=== PATIENT | male | born 1960 | race Caucasian/White ===

== ENCOUNTER 2017-02-10 00:48 | Inpatient (IN) | payer BC ==
--- NOTE | 2017-02-10 00:58 | HP ---
CIWA Score - CIWA Score Nausea/Vomitin Muscle Tremors: None Anxiety: 4-Mod. Anxious/Guarded Agitation: 3 Paroxysmal Sweats: 3 Orientation: 1-Uncertain about Date Tacttile Disturbances: 2-Mild Itch/Numbness/Burn Auditory Disturbances: 1-Very Mild Visual Disturbances: 2-Mild Sensitivity Headache: 1-Very Mild CIWA-Ar Total Score: 19 Admission ROS BHS - HPI Chief Complaint: Withdrawal symptoms Allergies/Adverse Reactions: Allergies Allergy/AdvReac Type Severity Reaction Status Date / Time No Known Allergies Allergy Verified 02/10/17 01:01 History of Present Illness: 56 y.o. man with a history dependence is here for his first admission ever into detox. Pt. was arrested the previous night for a DUI. He has a history of depression but is not currently under treatment. Exam Limitations: Intoxication - Ebola screening Have you traveled outside of the country in the last 21 days: No - Review of Systems Constitutional: Changes in sleep EENT: reports: No Symptoms Reported Respiratory: reports: No Symptoms reported Cardiac: reports: No Symptoms Reported GI: reports: No Symptoms Reported : reports: No Symptoms Reported Musculoskeletal: reports: No Symptoms Reported Integumentary: reports: No Symptoms Reported Neuro: reports: No Symptoms reported Endocrine: reports: No Symptoms Reported Hematology: reports: No Symptoms Reported Psychiatric: reports: Anxious, Depressed, other (ADHD) Other Systems: Reviewed and Negative Patient History - Patient Medical History Hx Anemia: No Hx Asthma: No Hx Chronic Obstructive Pulmonary Disease (COPD): No Hx Cancer: No Hx Cardiac Disorders: No Hx Congestive Heart Failure: No Hx Hypertension: No Hx Hypercholesterolemia: No Hx Pacemaker: No HX Cerebrovascular Accident: No Hx Seizures: No Hx Dementia: No Hx Diabetes: No Hx Gastrointestinal Disorders: No Hx Liver Disease: No Hx Genitourinary Disorders: No Hx Sexually Transmitted Disorders: No Hx Renal Disease (ESRD): No Hx Thyroid Disease: No Hx Human Immunodeficiency Virus (HIV): No Hx Hepatitis C: No Hx Depression: Yes Hx Suicide Attempt: No Hx Bipolar Disorder: No Hx Schizophrenia: No - Patient Surgical History Past Surgical History: No - PPD History Previous Implant?: Yes Documented Results: Negative w/o proof PPD to be Administered?: Yes - Reproductive History Patient is a Female of Child Bearing Age (11 -55 yrs old): No - Smoking Cessation Smoking history: Never smoked - Substance & Tx. History Hx Alcohol Use: Yes Hx Substance Use: Yes (Prescibed medical marijuana when living in [place]. ) Substance Use Type: Alcohol Hx Substance Use Treatment: No (NEVER BEEN TO DETOX OR REHAB ) - Substances Abused Alcohol Route: Oral Frequency: Daily Amount used: 1-2 pints of liquor Age of first use: 13 Date of Last Use: 02/09/17 Family Disease History - Family Disease History Family History: Denies Admission Physical Exam [facility] - Vital Signs Vital Signs: Last Vital Signs Temp Pulse Resp BP Pulse Ox 98.0 F 101 H 16 135/88 02/10/17 01:20 02/10/17 01:20 02/10/17 01:20 02/10/17 01:20 - Physical General Appearance: Yes: Irritable, Sweating, Anxious HEENTM: Yes: Hearing grossly Normal, Normocephalic, Normal Voice Respiratory: Yes: Chest Non-Tender, Lungs Clear, Normal Breath Sounds, No Respiratory Distress, No Accessory Muscle Use Neck: Yes: No masses,lesions,Nodules Breast: Yes: Breast Exam Deferred Cardiology: Yes: Regular Rhythm, Tachycardia Abdominal: Yes: Flat, Soft Genitourinary: Yes: Other (NO COMPLAINTS REPORTED) Back: Yes: Normal Inspection Musculoskeletal: Yes: Gait Steady, Pelvis Stable Extremities: Yes: Normal Inspection, Normal Range of Motion, Non-Tender Neurological: Yes: Alert, Normal Mood/Affect, Normal Response Integumentary: Yes: Normal Color, Dry, Warm Lymphatic: Yes: Within Normal Limits - Diagnostic (1) Alcohol dependence with uncomplicated withdrawal Current Visit: Yes Status: Chronic Cleared for Admission [facility] - Detox or Rehab [facility] Level of Care: Medically Managed Detox Regimen/Protocol: Librium [facility] Breath Alcohol Content Breath Alcohol Content: 0.270 Vital Signs - Vital Signs Vital Signs Refused: No Temperature: 98.0 F Temperature Source: Oral Pulse Rate: 101 Respiratory Rate: 16 Blood Pressure: 135/88 BP Location: Left Arm Blood Pressure Position: Sitting - Height Height: 5 ft 10 in - Weight Weight: 248 lb Weight Measurement Method: Standing Scale Body Mass Index (BMI): 35.6 Urine Drug Screen - Control Is Test Valid: Yes - Results Drug Screen Negative: Yes
[2017-02-10 01:02] VITALS: BMI 35.6
[2017-02-10] MEDS ORDERED: MAGNESIUM HYDROX 2400MG/30ML ORAL SUSPENSION 30 ML CUP PO PRN (01:05)
[2017-02-10] MEDS ORDERED: LOPERAMIDE HCL 2 MG CAPSULE PO PRN (01:05)
[2017-02-10] MEDS ORDERED: MENTHOL/PHENOL 1 EACH UD MM PRN (01:05)
[2017-02-10] MEDS ORDERED: guaiFENesin/D-METHORPHAN HB 10 ML UNIT-DOSE CUPS PO PRN (01:05)
[2017-02-10] MEDS ORDERED: P-EPHED 60MG/TRIPROLIDI 2.5MG TABLET PO PRN (01:05)
[2017-02-10] MEDS ORDERED: chlordiazePOXIDE HCL 25 MG CAPSULE PO ONE (01:05)
[2017-02-10] MEDS ORDERED: IBUPROFEN 400 MG TABLET (FP) PO PRN (01:05)
[2017-02-10] MEDS ORDERED: MAGNESIUM CITRATE 300 ML BOTTLE PO PRN (01:05)
[2017-02-10] MEDS ORDERED: MAG HYDROX/AL HYDROX/SIMETH 30 ML UNIT-DOSE CUP PO PRN (01:05)
[2017-02-10] MEDS ORDERED: chlordiazePOXIDE HCL 25 MG CAPSULE PO PRN (01:05)
[2017-02-10] MEDS ORDERED: ACETAMINOPHEN 325 MG TABLET (FP) PO PRN (01:05)
[2017-02-10] MEDS ORDERED: hydrOXYzine PAMOATE 50 MG CAPSULE (FP) PO PRN (01:05)
[2017-02-10] MEDS: chlordiazePOXIDE HCL 25 MG CAPSULE PO SCH ×4 (05:34→22:16)
[2017-02-10] MEDS: PRENATAL VITAMINS W/ FOLIC ACID TABLET (FP) PO SCH (10:06)
[2017-02-10 10:15] LABS: MCH 32.5 pg (25.7-33.7); MCHC 34.8 g/dl (32.0-35.9); MEAN CELL VOLUME 93.6 fl (80-96); MEAN PLT VOLUME 7.2 fl (7.5-11.1); PLATELET COUNT 209 K/MM3 (134-434); RDW 14.1 % (11.9-15.9)
[2017-02-10 10:18] LABS: URINE APPEARANCE CLEAR; URINE BILIRUBIN NEGATIVE (NEGATIVE); URINE BLOOD NEGATIVE (NEGATIVE); URINE COLOR LTYELLOW; URINE GLUCOSE (UA) NEGATIVE (NEGATIVE); URINE KETONE 1+ (NEGATIVE); URINE LEUK ESTERASE NEGATIVE (NEGATIVE); URINE NITRITE NEGATIVE (NEGATIVE); URINE PROTEIN NEGATIVE (NEGATIVE); URINE UROBILINOGEN NEGATIVE E.U./dl (0.2-1.0)
[2017-02-10 10:26] LABS: ALBUMIN 3.3 g/dl (3.4-5.0); ANION GAP 16 (8-16); CO2 24 mmol/L (21-32); COCKROFT - GAULT 183.02; CREATININE 0.7 mg/dL (0.7-1.3); GLUCOSE,RANDOM 85 mg/dL (74-106); SGOT/AST 33 U/L (15-37); SGPT/ALT 40 U/L (12-78)
[2017-02-10 10:29] LABS: ALK PHOS 64 U/L (45-117); BILIRUBIN,TOTAL 0.7 mg/dL (0.2-1.0); TOT PROT 6.5 g/dl (6.4-8.2)
--- NOTE | 2017-02-10 13:23 | PN ---
S CIWA - CIWA Score Nausea/Vomitin Muscle Tremors: 4-Moderate,w/Arms Extend Anxiety: 4-Mod. Anxious/Guarded Agitation: 4-Moderately Restless Paroxysmal Sweats: 2 Orientation: 0-Oriented Tacttile Disturbances: 1-Very Mild Itch/Numbness Auditory Disturbances: 0-None Visual Disturbances: 0-None Headache: 2-Mild CIWA-Ar Total Score: 20 BHS Progress Note (SOAP) Subjective: Anxious, sweating, chills, tremor, nausea Objective: 02/10/17 13:21 Last Vital Signs Temp Pulse Resp BP Pulse Ox 96.8 F L 101 H 18 178/99 02/10/17 13:06 02/10/17 13:06 02/10/17 13:06 02/10/17 13:06 B/P: 178/99 Laboratory Tests 02/10/17 02/10/17 02/10/17 08:00 08:00 08:00 WBC 6.0 RBC 4.94 Hgb 16.1 Hct 46.2 MCV 93.6 MCHC 34.8 RDW 14.1 Plt Count 209 MPV 7.2 L Sodium 139 Potassium 3.7 Chloride 99 Carbon Dioxide 24 Anion Gap 16 BUN 9 Creatinine 0.7 Creat Clearance w eGFR > 60 Random Glucose 85 Calcium 8.0 L Total Bilirubin 0.7 AST 33 ALT 40 Alkaline Phosphatase 64 Total Protein 6.5 Albumin 3.3 L Urine Color Urine Appearance Urine pH Ur Specific [place] Urine Protein Urine Glucose (UA) Urine Ketones Urine Blood Urine Nitrite Urine Bilirubin Urine Urobilinogen Ur Leukocyte Esterase RPR Titer Nonreactive 02/10/17 09:00 WBC RBC Hgb Hct MCV MCHC RDW Plt Count MPV Sodium Potassium Chloride Carbon Dioxide Anion Gap BUN Creatinine Creat Clearance w eGFR Random Glucose Calcium Total Bilirubin AST ALT Alkaline Phosphatase Total Protein Albumin Urine Color Ltyellow Urine Appearance Clear Urine pH 5.0 Ur Specific [place] 1.020 Urine Protein Negative Urine Glucose (UA) Negative Urine Ketones 1+ H Urine Blood Negative Urine Nitrite Negative Urine Bilirubin Negative Urine Urobilinogen Negative Ur Leukocyte Esterase Negative RPR Titer Labs noted Assessment: 02/10/17 13:22 Withdrawal symptoms Noted with HTN Plan: Continue detox Encouraged to drink plenty of water (at least 8 cups/day) HTN: clonidine 0.1mg PO q8hr prn, give if B/P > 140/90; start norvasc 10mg PO daily tomorrow
--- NOTE | 2017-02-10 15:44 | EKG ---
Test Reason : Blood Pressure : / mmHG Vent. Rate : 082 BPM Atrial Rate : 082 BPM P-R Int : 162 ms QRS Dur : 092 ms QT Int : 364 ms P-R-T Axes : 022 025 028 degrees QTc Int : 425 ms NORMAL SINUS RHYTHM NORMAL ECG NO PREVIOUS ECGS AVAILABLE Confirmed by MAGDA KEYS, RAMILA ([id number]) on 02/10/2017 3:44:19 PM Referred By: Confirmed By:RAMILA MAN MD
[2017-02-10] MEDS: diphenhydrAMINE HCL 50 MG CAPSULE PO PRN (22:16)
[2017-02-10] MEDS: THIAMINE HCL 100 MG TABLET (FP) PO SCH (22:16)
[2017-02-11] MEDS: chlordiazePOXIDE HCL 25 MG CAPSULE PO SCH ×4 (05:29→22:12)
[2017-02-11] MEDS: PRENATAL VITAMINS W/ FOLIC ACID TABLET (FP) PO SCH (10:08)
[2017-02-11] MEDS: amLODIPine BESYLATE 10 MG TABLET (FP) PO SCH (10:08)
--- NOTE | 2017-02-11 12:34 | PN ---
[facility] CIWA - CIWA Score Nausea/Vomitin-No Nausea/No Vomiting Muscle Tremors: 4-Moderate,w/Arms Extend Anxiety: 4-Mod. Anxious/Guarded Agitation: 3 Paroxysmal Sweats: 3 Orientation: 0-Oriented Tacttile Disturbances: 0-None Auditory Disturbances: 0-None Visual Disturbances: 0-None Headache: 0-None Present CIWA-Ar Total Score: 14 BHS Progress Note (SOAP) Subjective: Sweating,interrupted sleep,restless,tremors,anxiety Objective: 02/11/17 12:33 Vital Signs - 8 hr 02/11/17 02/11/17 06:14 09:20 Temperature 97.0 F L 97.6 F Pulse Rate 104 H 88 Respiratory 18 18 Rate Blood Pressure 150/108 162/106 Laboratory Tests 02/10/17 02/10/17 02/10/17 08:00 08:00 08:00 WBC 6.0 RBC 4.94 Hgb 16.1 Hct 46.2 MCV 93.6 MCHC 34.8 RDW 14.1 Plt Count 209 MPV 7.2 L Sodium 139 Potassium 3.7 Chloride 99 Carbon Dioxide 24 Anion Gap 16 BUN 9 Creatinine 0.7 Creat Clearance w eGFR > 60 Random Glucose 85 Calcium 8.0 L Total Bilirubin 0.7 AST 33 ALT 40 Alkaline Phosphatase 64 Total Protein 6.5 Albumin 3.3 L Urine Color Urine Appearance Urine pH Ur Specific [place] Urine Protein Urine Glucose (UA) Urine Ketones Urine Blood Urine Nitrite Urine Bilirubin Urine Urobilinogen Ur Leukocyte Esterase RPR Titer Nonreactive 02/10/17 09:00 WBC RBC Hgb Hct MCV MCHC RDW Plt Count MPV Sodium Potassium Chloride Carbon Dioxide Anion Gap BUN Creatinine Creat Clearance w eGFR Random Glucose Calcium Total Bilirubin AST ALT Alkaline Phosphatase Total Protein Albumin Urine Color Ltyellow Urine Appearance Clear Urine pH 5.0 Ur Specific [place] 1.020 Urine Protein Negative Urine Glucose (UA) Negative Urine Ketones 1+ H Urine Blood Negative Urine Nitrite Negative Urine Bilirubin Negative Urine Urobilinogen Negative Ur Leukocyte Esterase Negative RPR Titer labs noted Assessment: 02/11/17 12:33 Withdrawal sx. Plan: Continue detox
--- NOTE | 2017-02-11 13:06 | CONSULT ---
[facility] Psychiatric Consult - Data Date of interview: 02/11/17 Admission source: [facility] Identifying data: First admission to [facility] for this 56 y/o male seeking detox treatment for alcohol dependence.Patient is (has no children of his own),domiciled,currently unemployed and supported by spouse. Substance Abuse History: - Smoking Cessation. Smoking history: Never smoked. - Substance & Tx. History. Hx Alcohol Use: Yes. Hx Substance Use: Yes ( Prescibed medical marijuana when living in [place]. ). Substance Use Type: Alcohol. Hx Substance Use Treatment: No (NEVER BEEN TO DETOX OR REHAB ). - Substances Abused. Alcohol. Route: Oral. Frequency: Daily. Amount used: 1-2 pints of liquor. Age of first use: 13. Date of Last Use: 02/09/17. Confirmed by patient. Medical History: Patient endorses good general health. Psychiatric History: Patient denies history of psychiatric hospitalizations.He reports recent outpatient psychiatric care to address depression.Mr Dunn indicates that,until two months ago,he was under the care of a private psychiatrist in [place], [place].Was managed with lamotrigine.Stopped taking this medication over seven weeks ago because,according to patient,the drug was not effective.Patient denies history of suicide attempts. Physical/Sexual Abuse/Trauma History: Patient denies. Additional Comment: Drug Screen is negative. Mental Status Exam - Mental Status Exam Alert and Oriented to: Time, Place, Person Cognitive Function: Good Patient Appearance: Well Groomed Mood: Withdrawn, Hopeful Affect: Appropriate, Normal Range Patient Behavior: Cooperative Speech Pattern: Clear Voice Loudness: Normal Thought Process: Intact, Goal Oriented Thought Disorder: Not Present Hallucinations: Denies Suicidal Ideation: Denies Homicidal Ideation: Denies Insight/Judgement: Poor Sleep: Well Appetite: Good Muscle strength/Tone: Normal Gait/Station: Normal Psychiatric Findings - Problem List ([place] 1, 2,3) (1) Alcohol dependence with uncomplicated withdrawal Current Visit: Yes Status: Chronic (2) Alcohol-induced mood disorder Current Visit: Yes Status: Acute - Initial Treatment Plan Initial Treatment Plan: Psychoeducation.Detoxification.Observation.
[2017-02-11] MEDS: diphenhydrAMINE HCL 50 MG CAPSULE PO PRN (22:12)
[2017-02-11] MEDS: THIAMINE HCL 100 MG TABLET (FP) PO SCH (22:12)
[2017-02-11] MEDS: cloNIDine HCL 0.1 MG TABLET PO PRN (22:12)
[2017-02-12] MEDS: chlordiazePOXIDE 5 MG CAPSULE PO SCH ×4 (05:23→22:13)
[2017-02-12] MEDS: PRENATAL VITAMINS W/ FOLIC ACID TABLET (FP) PO SCH (10:25)
[2017-02-12] MEDS: amLODIPine BESYLATE 10 MG TABLET (FP) PO SCH (10:25)
--- NOTE | 2017-02-12 12:24 | PN ---
BHS Progress Note (SOAP) Subjective: Sweating,interrupted sleep,restless. Objective: 02/12/17 12:23 Vital Signs - 8 hr 02/12/17 02/12/17 06:11 09:14 Temperature 97.0 F L 96.7 F L Pulse Rate 85 86 Respiratory 18 18 Rate Blood Pressure 145/98 133/85 Laboratory Last Values WBC 6.0 K/mm3 (4.0-10.0) 02/10/17 08:00 RBC 4.94 M/mm3 (4.00-5.60) 02/10/17 08:00 Hgb 16.1 GM/dL (11.7-16.9) 02/10/17 08:00 Hct 46.2 % (35.4-49) 02/10/17 08:00 MCV 93.6 fl (80-96) 02/10/17 08:00 MCHC 34.8 g/dl (32.0-35.9) 02/10/17 08:00 RDW 14.1 % (11.9-15.9) 02/10/17 08:00 Plt Count 209 K/MM3 (134-434) 02/10/17 08:00 MPV 7.2 fl (7.5-11.1) L 02/10/17 08:00 Sodium 139 mmol/L (136-145) 02/10/17 08:00 Potassium 3.7 mmol/L (3.5-5.1) 02/10/17 08:00 Chloride 99 mmol/L (98-107) 02/10/17 08:00 Carbon Dioxide 24 mmol/L (21-32) 02/10/17 08:00 Anion Gap 16 (8-16) 02/10/17 08:00 BUN 9 mg/dL (7-18) 02/10/17 08:00 Creatinine 0.7 mg/dL (0.7-1.3) 02/10/17 08:00 Creat Clearance w eGFR > 60 (>60) 02/10/17 08:00 Random Glucose 85 mg/dL (74-106) 02/10/17 08:00 Calcium 8.0 mg/dL (8.5-10.1) L 02/10/17 08:00 Total Bilirubin 0.7 mg/dL (0.2-1.0) 02/10/17 08:00 AST 33 U/L (15-37) 02/10/17 08:00 ALT 40 U/L (12-78) 02/10/17 08:00 Alkaline Phosphatase 64 U/L (45-117) 02/10/17 08:00 Total Protein 6.5 g/dl (6.4-8.2) 02/10/17 08:00 Albumin 3.3 g/dl (3.4-5.0) L 02/10/17 08:00 Urine Color Ltyellow 02/10/17 09:00 Urine Appearance Clear 02/10/17 09:00 Urine pH 5.0 (5.0-8.0) 02/10/17 09:00 Ur Specific [place] 1.020 (1.005-1.025) 02/10/17 09:00 Urine Protein Negative (NEGATIVE) 02/10/17 09:00 Urine Glucose (UA) Negative (NEGATIVE) 02/10/17 09:00 Urine Ketones 1+ (NEGATIVE) H 02/10/17 09:00 Urine Blood Negative (NEGATIVE) 02/10/17 09:00 Urine Nitrite Negative (NEGATIVE) 02/10/17 09:00 Urine Bilirubin Negative (NEGATIVE) 02/10/17 09:00 Urine Urobilinogen Negative E.U./dl (0.2-1.0) 02/10/17 09:00 Ur Leukocyte Esterase Negative (NEGATIVE) 02/10/17 09:00 RPR Titer Nonreactive (NONREACTIVE) 02/10/17 08:00 labs noted Assessment: 02/12/17 12:23 Withdrawal sx. Plan: Continue detox
[2017-02-12] MEDS: cloNIDine HCL 0.1 MG TABLET PO PRN (16:52)
[2017-02-12] MEDS: THIAMINE HCL 100 MG TABLET (FP) PO SCH (22:12)
[2017-02-12] MEDS: diphenhydrAMINE HCL 50 MG CAPSULE PO PRN (22:13)
[2017-02-13] MEDS: chlordiazePOXIDE HCL 10 MG CAPSULE PO SCH ×2 (05:25→10:19)
[2017-02-13 09:19] VITALS: BP 139/93; PULSE 92; TEMP 98.4
[2017-02-13] MEDS: amLODIPine BESYLATE 10 MG TABLET (FP) PO SCH (10:16)
[2017-02-13] MEDS: PRENATAL VITAMINS W/ FOLIC ACID TABLET (FP) PO SCH (10:17)
--- NOTE | 2017-02-13 11:22 | DS ---
[facility] Detox Discharge Summary Admission Date: 02/10/17 Discharge Date: 02/13/17 - History Present History: Alcohol Dependence Additional Comments: ADVISED PATIENT TO FOLLOW-UP WITH [facility] AFTER DISCHARGE FROM DETOX FOR GENERAL MEDICAL ASSESSMENT. Pertinent Past History: Depression. - Physical Exam Results Vital Signs: Vital Signs Temperature 98.4 F 02/13/17 09:19 Pulse Rate 92 H 02/13/17 09:19 Respiratory Rate 18 02/13/17 09:19 Blood Pressure 139/93 02/13/17 09:19 O2 Sat by Pulse Oximetry (%) Pertinent Admission Physical Exam Findings: WITHDRAWAL SYMPTOMS. Laboratory Tests 02/10/17 02/10/17 02/10/17 08:00 08:00 08:00 WBC 6.0 RBC 4.94 Hgb 16.1 Hct 46.2 MCV 93.6 MCHC 34.8 RDW 14.1 Plt Count 209 MPV 7.2 L Sodium 139 Potassium 3.7 Chloride 99 Carbon Dioxide 24 Anion Gap 16 BUN 9 Creatinine 0.7 Creat Clearance w eGFR > 60 Random Glucose 85 Calcium 8.0 L Total Bilirubin 0.7 AST 33 ALT 40 Alkaline Phosphatase 64 Total Protein 6.5 Albumin 3.3 L Urine Color Urine Appearance Urine pH Ur Specific [place] Urine Protein Urine Glucose (UA) Urine Ketones Urine Blood Urine Nitrite Urine Bilirubin Urine Urobilinogen Ur Leukocyte Esterase RPR Titer Nonreactive 02/10/17 09:00 WBC RBC Hgb Hct MCV MCHC RDW Plt Count MPV Sodium Potassium Chloride Carbon Dioxide Anion Gap BUN Creatinine Creat Clearance w eGFR Random Glucose Calcium Total Bilirubin AST ALT Alkaline Phosphatase Total Protein Albumin Urine Color Ltyellow Urine Appearance Clear Urine pH 5.0 Ur Specific [place] 1.020 Urine Protein Negative Urine Glucose (UA) Negative Urine Ketones 1+ H Urine Blood Negative Urine Nitrite Negative Urine Bilirubin Negative Urine Urobilinogen Negative Ur Leukocyte Esterase Negative RPR Titer LABS NOTED. - Treatment Hospital Course: Detox Protocol Followed, Detoxed Safely, Responded well, Discharged Condition Good Patient has Accepted a Rehab Referral to: PATIENT ELECTING TO GO HOME. 12-STEP / AA OUTPATIENT PROGRAMS RECOMENDED. - Medication Discharge Medications: Ambulatory Orders NK [No Known Home Medication] 02/10/17 - Diagnosis (1) Alcohol-induced mood disorder Current Visit: Yes Status: Acute (2) Alcohol dependence with uncomplicated withdrawal Current Visit: Yes Status: Acute - AMA Did Patient Leave Against Medical Advice: No
== END 2017-02-13 10:45 | disposition home or self-care (01) | DRG 897 ==
LOC: YASAS 00:48 → Y3N 00:54
PROVIDERS: ADMIT Internal Medicine; ATTEND Internal Medicine
PROC: HZ2ZZZZ Detoxification Services for Substance Abuse Treatment (ICD-10-PCS; principal; 2017-02-10)
DX: F10.230 Alcohol dependence with withdrawal, uncomplicated (principal); F10.24 Alcohol dependence with alcohol-induced mood disorder; I10 Essential (primary) hypertension; R00.0 Tachycardia, unspecified
CPT/HCPCS: 36415; 80053; 81003; 85027; 86593; 93005; 93010